=== PATIENT | male | born 1995 ===

== ENCOUNTER 2016-10-16 18:54 | Emergency (ER) | payer OTHER ==
[2016-10-16 19:12] VITALS: BP 132/79
--- NOTE | 2016-10-16 19:26 | UC ---
Throat Pain/Nasal Kole HPI - HPI Summary HPI Summary: Sore throat for 1 week right worse than left and right ear pain - History of Current Complaint Chief Complaint: UCRespiratory Stated Complaint: THROAT COMPLAINT Time Seen by Provider: 10/16/16 19:20 Hx Obtained From: Patient Onset/Duration: Sudden Onset, Lasting Weeks - 1, Still Present Severity: Mild Pain Intensity: 4 Cough: None Associated Signs & Symptoms: Positive: Negative - Allergies/Home Medications Allergies/Adverse Reactions: Allergies Allergy/AdvReac Type Severity Reaction Status Date / Time SEASONAL Allergy Runny Nose Uncoded 10/16/16 19:12 HAYFEVER/ENVIRONMENTAL PMH/Surg Hx/FS Hx/Imm Hx Previously Healthy: Yes Endocrine History Of: Denies: Diabetes, Thyroid Disease, Hyperthyroidism, Hypothyroidism Cardiovascular History Of: Denies: Cardiac Disorders, Hypertension, Pacemaker/ICD Neurological History Of: Denies: TIA, Seizures Psychological History Of: Denies: Anxiety, Depression - Surgical History Surgical History: Yes Surgery Procedure, Year, and Place: BOWEL SURGERY A , APPENDIX INFANT. 2011 WISDOM TEETH EXTRACTION, OFFICE, LEFT KNEE SURGERY X2, NOSE SURGERY 2017 - Family History Known Family History: Positive: None - Social History Occupation: Student Lives: With Family Alcohol Use: Occasionally Substance Use Type: None Smoking Status (MU): Never Smoked Tobacco Review of Systems Constitutional: Negative Skin: Negative Eyes: Negative ENT: Sore Throat, Ear Ache Respiratory: Negative Cardiovascular: Negative Gastrointestinal: Negative Genitourinary: Negative Motor: Negative Neurovascular: Negative Musculoskeletal: Negative Neurological: Negative Psychological: Negative All Other Systems Reviewed And Are Negative: Yes Physical Exam Triage Information Reviewed: Yes Appearance: Well-Appearing, No Pain Distress, Well-Nourished Vital Signs: Initial Vital Signs Temp 97.7 F 10/16/16 19:06 Pulse 77 10/16/16 19:06 Resp 16 10/16/16 19:06 BP 132/79 10/16/16 19:06 Pulse Ox 100 10/16/16 19:06 Vital Signs Reviewed: Yes Eye Exam: Normal Eyes: Positive: Conjunctiva Clear ENT Exam: Normal ENT: Positive: Normal ENT inspection, Hearing grossly normal, Pharynx normal, TMs normal, Tonsillar swelling - r>l. Negative: Nasal congestion, Nasal drainage, Tonsillar exudate, Trismus, Muffled/hoarse voice Dental Exam: Normal Neck exam: Normal Neck: Positive: Supple, Nontender, No Lymphadenopathy Respiratory Exam: Normal Respiratory: Positive: Chest non-tender, Lungs clear, Normal breath sounds, No respiratory distress, No accessory muscle use Cardiovascular Exam: Normal Cardiovascular: Positive: RRR, No Murmur, Pulses Normal, Brisk Capillary Refill Musculoskeletal Exam: Normal Musculoskeletal: Positive: Strength Intact, ROM Intact, No Edema Neurological Exam: Normal Neurological: Positive: Alert, Muscle Tone Normal Psychological Exam: Normal Skin Exam: Normal Diagnostics - Laboratory Diagnostic Studies Completed/Ordered: RST(-) Throat Pain/Nasal Course/Dx - Course Assessment/Plan: increase fluids, ibuprofen, follow with pcp prn - Differential Dx/Diagnosis Differential Diagnosis/HQI/PQRI: Laryngitis, Peritonsillar Abscess, Pharyngitis , Tonsillitis Provider Diagnoses: Viral tonsillitis Discharge - Discharge Plan Condition: Stable Disposition: HOME Patient Education Materials: Ibuprofen (By mouth), Tonsillitis (ED) Referrals: [place],Catracho Recinos [Primary Care Provider] - If Needed
== END 2016-10-16 19:54 | disposition home or self-care (01) ==
LOC: UCEAST 18:54
DX: J03.80 Acute tonsillitis due to other specified organisms (principal)
CPT/HCPCS: 87651; 99211; G0463

== ENCOUNTER 2017-08-19 21:45 | Emergency (ER) | payer OTHER ==
--- NOTE | 2017-08-19 21:47 | UC ---
Ear Complaint HPI - History of Current Complaint Stated Complaint: L EAR PLUGGED Hx Obtained From: Patient Onset/Duration: Gradual Onset Severity Initially: Mild Severity Currently: Mild Pain Scale Used: 0-10 Numeric - Allergies/Home Medications Allergies/Adverse Reactions: Allergies Allergy/AdvReac Type Severity Reaction Status Date / Time SEASONAL Allergy Runny Nose Uncoded 10/16/16 19:12 HAYFEVER/ENVIRONMENTAL PMH/Surg Hx/FS Hx/Imm Hx Previously Healthy: Yes - Surgical History Surgical History: Yes Surgery Procedure, Year, and Place: BOWEL SURGERY A , APPENDIX INFANT. 2011 WISDOM TEETH EXTRACTION, OFFICE, LEFT KNEE SURGERY X2, NOSE SURGERY 2017 - Family History Known Family History: Positive: None - Social History Alcohol Use: Occasionally Substance Use Type: None Smoking Status (MU): Never Smoked Tobacco Review of Systems Constitutional: Negative Skin: Negative Eyes: Negative ENT: Ear Ache Respiratory: Negative Cardiovascular: Negative Gastrointestinal: Negative Neurovascular: Negative Neurological: Negative Psychological: Negative All Other Systems Reviewed And Are Negative: Yes Physical Exam Triage Information Reviewed: Yes Discharge - Sign-Out/Discharge Documenting (check all that apply): Discharge - Discharge Plan Condition: Stable Disposition: HOME Referrals: Catracho Hawkins MD [Primary Care Provider] - - Billing Disposition and Condition Condition: STABLE Disposition: HOME
[2017-08-19 21:59] VITALS: BP 196/96
--- NOTE | 2017-08-19 22:03 | UC ---
Brice Hassan Gabriel, scribed for Prasanna Chandra MD on 08/19/17 at 2155 . Ear Complaint HPI - HPI Summary HPI Summary: This patient is a 22 year old M presenting to [facility] with a chief complaint of difficulty hearing due to his ears being plugged. He states this happens often and gets them irrigated. Patient denies fever and rhinorrhea. - History of Current Complaint Stated Complaint: L EAR PLUGGED Time Seen by Provider: 08/19/17 21:50 Hx Obtained From: Patient Onset/Duration: Still Present Severity Initially: Moderate Severity Currently: Moderate Pain Intensity: 0 Pain Scale Used: 0-10 Numeric Associated Signs/Symptoms: Positive: Hearing Loss. Negative: Discharge - Allergies/Home Medications Allergies/Adverse Reactions: Allergies Allergy/AdvReac Type Severity Reaction Status Date / Time SEASONAL Allergy Runny Nose Uncoded 08/19/17 21:59 HAYFEVER/ENVIRONMENTAL PMH/Surg Hx/FS Hx/Imm Hx Other History Of: Negative For: Hepatitis B, Hepatitis C - Surgical History Surgical History: Yes Surgery Procedure, Year, and Place: BOWEL SURGERY A INFANT, APPENDIX . 2012 WISDOM TEETH EXTRACTION, OFFICE, LEFT KNEE SURGERY X2, NOSE SURGERY 2017 - Family History Known Family History: Negative: Cardiac Disease, Hypertension, Renal Disease, Respiratory Disease, Seizure Disorder - Social History Alcohol Use: Occasionally Substance Use Type: None Smoking Status (MU): Never Smoked Tobacco Review of Systems Constitutional: Negative - fever ENT: Other - decreased hearing All Other Systems Reviewed And Are Negative: Yes Physical Exam - Summary Physical Exam Summary: General: well-appearing, no pain distress Skin: warm, color reflects adequate perfusion, dry Head: normal Eyes: EOMI, RADHA ENT: Left ear cerumen impaction Neck: supple, nontender Respiratory: CTA, breath sounds present Cardiovascular: RRR Abdomen: soft, nontender Bowel: present Musculoskeletal: normal, strength/ROM intact Neurological: normal, sensory/motor intact, A&O x3 Psychological: affect/mood appropriate Triage Information Reviewed: Yes Vital Signs: Initial Vital Signs Temp 98.6 F 08/19/17 21:56 Pulse 91 08/19/17 21:56 Resp 20 08/19/17 21:56 BP 196/96 08/19/17 21:56 Pulse Ox 98 08/19/17 21:56 Vital Signs Reviewed: Yes Ear Complaint Course/Dx - Course Course Of Treatment: LEFT EAR IRRIGATED IN CLINIC - Differential Dx/Diagnosis Provider Diagnoses: LEFT CERUMEN IMPACTION. HIGH BLOOD PRESSURE Discharge - Sign-Out/Discharge Documenting (check all that apply): Discharge - Discharge Plan Condition: Stable Disposition: HOME Patient Education Materials: Cerumen Impaction (ED) Referrals: Catracho Hawkins MD [Primary Care Provider] - Additional Instructions: FOLLOW UP WITH YOUR DOCTOR. RETURN TO THE EMERGENCY DEPARTMENT FOR ANY WORSENING OF YOUR CONDITION OR QUESTIONS OR CONCERNS. YOUR BLOOD PRESSURE WAS ELEVATED TODAY; FOLLOW UP WITH YOUR PRIMARY CARE DOCTOR WITHIN ONE WEEK. - Billing Disposition and Condition Condition: STABLE Disposition: HOME The documentation as recorded by the Brice suarez Gabriel accurately reflects the service I personally performed and the decisions made by me, Prasanna Chandra MD.
== END 2017-08-19 22:05 | disposition home or self-care (01) ==
LOC: UCEAST 21:45
DX: H61.22 Impacted cerumen, left ear (principal); R03.0 Elevated blood-pressure reading, without diagnosis of hypertension
CPT/HCPCS: 99212; G0463